=== PATIENT | male | born 1980 | race Hispanic/Latino ===

== ENCOUNTER 2017-10-01 16:57 | Emergency (ER) | payer OTHER ==
[2017-10-01 17:13] VITALS: BP 124/88; PULSE 81; RESP 18; TEMP 98.6; O2SAT 99
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
--- NOTE | 2017-10-02 09:38 | RAD ---
Date of service: 10/01/2017 PROCEDURE: Right Wrist Radiographs. HISTORY: injury COMPARISON: None. FINDINGS: BONES: There is traversed fracture involving both the neck and body of the navicular bone right wrist. The fracture is nondisplaced. No additional fracture is appreciate throughout the carpal bones or the visualized metacarpal bones, distal radius and ulna. JOINTS: No subluxation or dislocation appreciated. SOFT TISSUES: Normal. OTHER FINDINGS: None. IMPRESSION: Transverse oblique fracture at the neck and body of the right navicular bone. No dislocation or subluxation.
== END 2017-10-01 19:22 | disposition home or self-care (01) ==
LOC: C.ER 16:57
DX: S62.001A Unspecified fracture of navicular [scaphoid] bone of right wrist, initial encounter for closed fracture (principal); V18.0XXA Pedal cycle driver injured in noncollision transport accident in nontraffic accident, initial encounter; Y93.55 Activity, bike riding